=== PATIENT | male | born 1980 | race Caucasian/White ===

== ENCOUNTER 2017-01-07 16:15 | Day surgery (SDC) | payer OTHER ==
[~2017-01-07] VITALS: Ht 167.6 cm; Wt 88.5 kg
[2017-01-07] MEDS ORDERED: NS IV 1000 ML 1,000 ML IV SCH (18:00)
--- NOTE | 2017-01-07 18:00 | ED Abdominal Pain ---
General Chief Complaint: Abdominal/GI Problems Stated Complaint: GALLBLADDER Nursing Triage Note: Patient was evaluated by Dr. Brunson ([place]) patient had an ultrasound of gallbladder and was told to present to [facility] Sepsis Screen: No Definite Risk Source of Information: Patient Exam Limitations: No Limitations (THEODORE BROCK MD) History of Present Illness Time Seen By Provider: 17:55 Initial Comments The patient is a 36-year-old white male who presents from [facility]. He reports that on last Wednesday he became ill with abdominal pain and vomiting. He saw his doctor in [place] and this morning had an ultrasound done. He was then summoned to the doctor's office and was allegedly told that he should get to [facility] that they would help him there. No blood work was done. The patient brought the disc with him. He reports that he is otherwise in apparent good health. Timing/Duration: 4-5 Days Severity/Quality: Moderate Location: Generalized Abdomen Radiation: Flank (right) (THEODORE BROCK MD) Initial Comments 1750--PT SEEN AND EVALUATED BY ME PT HAS HAD NAUSEA AND VOMITING AND RUQ AND UPPER ABDOMINAL PAIN RADIATING AROUND TO RIGHT FLANK SINCE Wednesday01/02/17 NO VOMITING TODAY, BUT IS STILL VERY NAUSEATED NO DIARRHEA NO FEVER C/O FEELING LIGHTHEADED TODAY MINIMAL INTAKE, DUE TO SYMPTOMS. DID EAT TOAST EARLY THIS AM PT LIVES IN [place], [place] AND WAS SEEN TODAY BY DR IN [place], [place] HAD OUTPATIENT ULTRASOUND AT THAT HOSPITAL, THEN WENT BACK TO DR'S OFFICE AND STATES THAT DRJose TOLD HIM "HE DIDN'T LIKE THE RESULTS" BUT HAD NOT BEEN READ BY RADIOLOGIST YET PT STATES THE DR TOLD HIM "IF HE DID LAB HE MIGHT HAVE TO PUT ME IN THE HOSPITAL AND HE COULD POSSIBLY MAKE IT WORSE" --SO PT STATES HE WAS TOLD BY THE TO COME HERE TO THIS ER --BRINGS A CD DISC OF HIS ULTRASOUND (GUNNER GRANT DO) Allergies and Home Medications Allergies Coded Allergies: No Known Drug Allergies (Unverified , 01/07/17) Home Medications Hydrocodone/Acetaminophen 1 Each Tablet, 1-2 TAB PO Q6H, #30 Ref 0 Prescribed by: ALTHEA HENDERSON on 01/07/17 9740 Review of Systems Constitutional: see HPI EENTM: No Symptoms Reported Respiratory: No Symptoms Reported Gastrointestinal: See HPI, Abdominal Pain, Nausea, Poor Appetite, Vomiting Genitourinary: No Symptoms Reported Musculoskeletal: no symptoms reported Skin: no symptoms reported Psychiatric/Neurological: No Symptoms Reported Endocrine: No Symptoms Reported Hematologic/Lymphatic: No Symptoms Reported (THEODORE BRCOK MD) Constitutional: no symptoms reported Respiratory: No Symptoms Reported Cardiovascular: No Symptoms Reported Gastrointestinal: See HPI, Abdominal Pain (EPIGASTRIC AND RUQ), Denies Constipated, Denies Diarrhea, Nausea, Poor Appetite, Poor Fluid Intake, Vomiting Genitourinary: No Symptoms Reported Musculoskeletal: see HPI, back pain (RIGHT FLANK) (YAJAIRA GRANTA Jaciel DO) Past Gsfjjzf-Nbwloa-Qqpuvy Hx Patient Social History Alcohol Use: Denies Use Recreational Drug Use: No Type Used: Cigarettes 2nd Hand Smoke Exposure: No Recent Foreign Travel: No Contact w/Someone Who Travel: No Recent Infectious Disease Expo: No Recent Hopitalizations: No (THEODORE BROCK MD) Alcohol Use: Occasionally Uses (HISTORY OF VERY HEAVY, REGULAR USE, NOW DRINKS ABOUT ONCE A MONTH) Recreational Drug Use: Yes (THC) Smoking Status: Current Someday Smoker Type Used: Cigars, Smokeless Tobacco (YAJAIRA GRANTA K DO) Surgeries HX Surgeries: No (THEODORE BROCK MD) HX Surgeries: No (GUNNER GRANT DO) Respiratory Hx Respiratory Disorders: No (THEODORE BROCK MD) Hx Respiratory Disorders: No (GUNNER GRANT DO) Cardiovascular Hx Cardiac Disorders: Yes Cardiac Disorders: Hypertension (THEODORE BROCK MD) Hx Cardiac Disorders: No (YAJAIRA GRANTA Jaciel MCCABE) Neurological Hx Neurological Disorders: No (THEODORE BROCK MD) Hx Neurological Disorders: No (YAJAIRA GRANTA Jaciel MCCABE) Reproductive System Hx Reproductive Disorders: No Sexually Transmitted Disease: No (THEODORE BROCK MD) Hx Reproductive Disorders: No (GUNNER GRANT DO) Genitourinary Hx Genitourinary Disorders: No (THEODORE BROCK MD) Hx Genitourinary Disorders: No (GUNNER GRANT DO) Gastrointestinal Hx Gastrointestinal Disorders: No (THEODORE BROCK MD) Hx Gastrointestinal Disorders: No (YAJAIRA GRANTA Jaciel DO) Musculoskeletal Hx Musculoskeletal Disorders: No (THEODORE BROCK MD) Hx Musculoskeletal Disorders: No (JUANITA,GUNNER K DO) Endocrine Hx Endocrine Disorders: No (THEODORE BROCK MD) Hx Endocrine Disorders: No (YAJAIRA GRANTA K DO) HEENT HX ENT Disorders: No (THEODORE BROCK MD) HX ENT Disorders: No (YAJAIRA GRANTA Jaciel DO) Cancer Hx Cancer: No (THEODORE BROCK MD) Hx Cancer: No (YAJAIRA GRANTA Jaciel MCCABE) Psychosocial Hx Psychiatric Problems: No (THEODORE BROCK MD) Hx Psychiatric Problems: No (YAJAIRA GRANTA K DO) Integumentary HX Skin/Integumentary Disorder: No (THEODORE BROCK MD) HX Skin/Integumentary Disorder: No (YAJAIRA GRANTA Jaciel MCCABE) Blood Transfusions Hx Blood Disorders: No (THEODORE BROCK MD) Hx Blood Disorders: No (JUANITA,GUNNER K DO) Physical Exam Vital Signs VS - Last 72 Hours, by Label 01/07/17 01/07/17 16:42 17:56 Temp 99.5 100.6 Pulse 88 98 Resp 18 18 B/P (MAP) 130/103 Pulse Ox 97 100 (JUANITA,GUNNER K DO) Vital Signs Capillary Refill : Less Than 3 Seconds (THEODORE BROCK MD) General Appearance: moderate distress HEENT: PERRL/EOMI, normal ENT inspection, TMs normal, pharynx normal Neck: non-tender, full range of motion, supple, normal inspection Respiratory: chest non-tender, lungs clear, normal breath sounds, no respiratory distress, no accessory muscle use Cardiovascular: normal peripheral pulses, regular rate, rhythm, no edema, no gallop, no JVD, no murmur Gastrointestinal: other Pelvic: discharge Skin: normal color, warm/dry Lymphatic: no adenopathy (THEODORE BRCOK MD) General Appearance: WD/WN, no apparent distress, other (LOOKS SLIGHTLY UNCOMFORTABLE. 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, no motor/sensory deficits, alert, normal mood/affect, oriented x 3 Skin: normal color, warm/dry, No jaundice (JUANITA,GUNNER K DO) Progress/Results/Core Measures Results/Orders Lab Results Laboratory Tests Test 01/07/17 18:15 01/07/17 18:18 Range/Units Urine Color YELLOW Urine Clarity SLIGHTLY CLOUDY Urine pH 6 5-9 Urine Specific [place] 1.020 1.016-1.022 Urine Protein 1+ H NEGATIVE Urine Glucose (UA) NEGATIVE NEGATIVE Urine Ketones 1+ H NEGATIVE Urine Nitrite NEGATIVE NEGATIVE Urine Bilirubin NEGATIVE NEGATIVE Urine Urobilinogen NORMAL NORMAL MG/DL Urine Leukocyte Esterase 1+ H NEGATIVE Urine RBC (Auto) NEGATIVE NEGATIVE Urine RBC NONE /HPF Urine WBC 0-2 /HPF Urine Crystals NONE /LPF Urine Bacteria NEGATIVE /HPF Urine Casts NONE /LPF Urine Mucus LARGE H /LPF Urine Culture Indicated NO Urine Opiates Screen NEGATIVE NEGATIVE Urine Oxycodone Screen NEGATIVE NEGATIVE Urine Methadone Screen NEGATIVE NEGATIVE Urine Propoxyphene Screen NEGATIVE NEGATIVE Urine Barbiturates Screen NEGATIVE NEGATIVE Ur Tricyclic Antidepressants Screen NEGATIVE NEGATIVE Urine Phencyclidine Screen NEGATIVE NEGATIVE Urine Amphetamines Screen NEGATIVE NEGATIVE Urine Methamphetamines Screen NEGATIVE NEGATIVE Urine Benzodiazepines Screen NEGATIVE NEGATIVE Urine Cocaine Screen NEGATIVE NEGATIVE Urine Cannabinoids Screen POSITIVE H NEGATIVE White Blood Count 11.1 H 4.3-11.0 10^3/uL Red Blood Count 5.16 4.35-5.85 10^6/uL Hemoglobin 15.6 13.3-17.7 G/DL Hematocrit 45 40-54 % Mean Corpuscular Volume 88 80-99 FL Mean Corpuscular Hemoglobin 30 25-34 PG Mean Corpuscular Hemoglobin Concent 35 32-36 G/DL Red Cell Distribution Width 12.4 10.0-14.5 % Platelet Count 271 130-400 10^3/uL Mean Platelet Volume 9.7 7.4-10.4 FL Neutrophils (%) (Auto) 58 42-75 % Lymphocytes (%) (Auto) 32 12-44 % Monocytes (%) (Auto) 9 0-12 % Eosinophils (%) (Auto) 1 0-10 % Basophils (%) (Auto) 1 0-10 % Neutrophils # (Auto) 6.4 1.8-7.8 X 10^3 Lymphocytes # (Auto) 3.5 1.0-4.0 X 10^3 Monocytes # (Auto) 1.0 0.0-1.0 X 10^3 Eosinophils # (Auto) 0.1 0.0-0.3 10^3/uL Basophils # (Auto) 0.1 0.0-0.1 10^3/uL Sodium Level 140 135-145 MMOL/L Potassium Level 4.0 3.6-5.0 MMOL/L Chloride Level 103 98-107 MMOL/L Carbon Dioxide Level 26 21-32 MMOL/L Anion Gap 11 5-14 MMOL/L Blood Urea Nitrogen 11 7-18 MG/DL Creatinine 0.82 0.60-1.30 MG/DL Estimat Glomerular Filtration Rate > 60 BUN/Creatinine Ratio 13 Glucose Level 88 70-105 MG/DL Calcium Level 9.4 8.5-10.1 MG/DL Total Bilirubin 0.9 0.1-1.0 MG/DL Aspartate Amino Transf (AST/SGOT) 15 5-34 U/L Alanine Aminotransferase (ALT/SGPT) 18 0-55 U/L Alkaline Phosphatase 66 40-136 U/L Total Protein 7.1 6.4-8.2 G/DL Albumin 4.4 3.2-4.5 G/DL Amylase Level 64 25-125 U/L Lipase 5 L 8-78 U/L (JUANITAGUNNER Jaciel DO) My Orders Orders - JUANITAGUNNER K DO Saline Lock/Iv-Start (01/07/17 18:05) Amylase (01/07/17 18:05) Drug Screen Stat (Urine) (01/07/17 18:05) Ondansetron Injection (Zofran Injectio (01/07/17 18:15) Ketorolac Injection (Toradol Injection) (01/07/17 18:05) Ct Abdomen/Pelvis W (01/07/17 18:33) Acute Abd Series (01/07/17 18:33) Iohexol Injection (Omnipaque 350 Mg/Ml 1 (01/07/17 18:45) Ns (Ivpb) (Sodium Chloride 0.9% Ivpb Bag (01/07/17 18:45) (GUNNER GRANT DO) Medications Given in ED Current Medications Medications Dose Ordered Sig/Catracho Route Start Time Stop Time Status Last Admin Dose Admin Iohexol 100 ml ONCE ONCE IV 01/07/17 18:45 01/07/17 18:46 DC 01/07/17 18:57 100 ML Ondansetron HCl 8 mg ONCE ONCE IVP 01/07/17 18:15 01/07/17 18:16 DC 01/07/17 18:29 8 MG Sodium Chloride 100 ml ONCE ONCE IV 01/07/17 18:45 01/07/17 18:46 DC 01/07/17 18:57 80 ML (GUNNER GRANT DO) Vital Signs/I&O Vital Sign - Last 12Hours 01/07/17 01/07/17 16:42 17:56 Temp 99.5 100.6 Pulse 88 98 Resp 18 18 B/P (MAP) 130/103 Pulse Ox 97 100 Intake and Output 01/08/17 00:00 Intake Total 1000 ml Balance 1000 ml (GUNNER GRANT DO) Blood Pressure Mean: [address] ABDOMEN/PELVIS--FATTY LIVER, GB GROSSLY NORMAL, NO ACUTE PROCESS PER RADIOLOGIST REPORT @ 191 ON REVIEW OF GB ULTRASOUND DONE AT [place], THERE IS NOTED TO BE A LARGE GALLSTONE PRESENT Reviewed: Reviewed by Me (GUNNER GRANT DO) Departure Communication Progress Notes 1917--SPOKE WITH DR. HENDERSON --WILL BE DOWN TO SEE PT 1943--DR. HENDERSON HERE TO SEE PT. CARE TURNED OVER TO HIM. DR. HENDERSON WILL BE TAKING PT TO SURGERY TONIGHT (GUNNER GRANT DO) Impression Impression: Primary Impression: Cholelithiasis Disposition: ADMITTED INPATIENT (TO SURGERY) Condition: Improved Decision to Admit Reason: Admit from ER (General) (TO OR) Decision to Admit/Date: Jan 07, 2017 Time/Decision to Admit Time: 20:00 (GUNNER GRANT DO) Departure-Patient Inst. Referrals: NO,LOCAL PHYSICIAN (PCP) Primary Care Physician Scripts Hydrocodone/Acetaminophen (Hydrocodon-Acetaminophn 10-325) 1 Each Tablet 1-2 TAB PO Q6H for PAIN, #30 TAB 0 Refills Prov: ALTHEA HENDERSON DO 01/07/17 THEODORE BROCK MD Jan 07, 2017 18:00 GUNNER GRANT DO Jan 08, 2017 04:34
[2017-01-07] MEDS ORDERED: KETOROLAC 30 MG/ML VIAL IVP STA (18:05)
[2017-01-07] MEDS ORDERED: ONDANSETRON 4 MG/2 ML (SDV) Z0FRAN IVP ONE (18:15)
[2017-01-07 18:23] LABS: BASOPHILS # (AUTO) 0.1 10^3/uL (0.0-0.1); BASOPHILS % (AUTO) 1 % (0-10); EOSINOPHILS # (AUTO) 0.1 10^3/uL (0.0-0.3); EOSINOPHILS % (AUTO) 1 % (0-10); LYMPHOCYTES # (AUTO) 3.5 X 10^3 (1.0-4.0); LYMPHOCYTES % (AUTO) 32 % (12-44); MEAN CORPUSCULAR HEMOGLOBIN 30 PG (25-34); MEAN CORPUSCULAR HGB CONC 35 G/DL (32-36); MEAN CORPUSCULAR VOLUME 88 FL (80-99); MEAN PLATELET VOLUME 9.7 FL (7.4-10.4); MONOCYTES % (AUTO) 9 % (0-12); NEUTROPHILS # (AUTO) 6.4 X 10^3 (1.8-7.8); NEUTROPHILS % (AUTO) 58 % (42-75); PLATELET COUNT 271 10^3/uL (130-400); RED BLOOD COUNT 5.16 10^6/uL (4.35-5.85); RED CELL DISTRIBUTION WIDTH 12.4 % (10.0-14.5); WHITE BLOOD COUNT 11.1 10^3/uL (4.3-11.0)
[2017-01-07 18:41] LABS: ALANINE AMINOTRANSFERASE 18 U/L (0-55); ALBUMIN 4.4 G/DL (3.2-4.5); AMYLASE 64 U/L (25-125); ANION GAP 11 MMOL/L (5-14); ASPARTATE AMINO TRANSFERASE 15 U/L (5-34); BILIRUBIN,TOTAL 0.9 MG/DL (0.1-1.0); BLOOD UREA NITROGEN 11 MG/DL (7-18); BUN/CREATININE RATIO 13; CALCIUM 9.4 MG/DL (8.5-10.1); CARBON DIOXIDE 26 MMOL/L (21-32); CHLORIDE 103 MMOL/L (98-107); CREATININE SERUM 0.82 MG/DL (0.60-1.30); GFR ESTIMATED > 60; GLUCOSE 88 MG/DL (70-105); LIPASE 5 U/L (8-78); SODIUM 140 MMOL/L (135-145); TOTAL PROTEIN 7.1 G/DL (6.4-8.2)
[2017-01-07 18:43] LABS: BILIRUBIN,URINE NEGATIVE (NEGATIVE); KETONES,URINE 1+ (NEGATIVE); LEUKOCYTE ESTERASE ,URINE 1+ (NEGATIVE); NITRITE,URINE NEGATIVE (NEGATIVE); PH,URINE 6 (5-9); PROTEIN,URINE 1+ (NEGATIVE); UROBILINOGEN,URINE NORMAL (NORMAL)
[2017-01-07] MEDS ORDERED: IOHEXOL 350 MG/ML 100 ML (OMNIPAQUE 350) VIAL IV ONE (18:45)
[2017-01-07] MEDS ORDERED: NS 100 ML (IVPB) BAG IV ONE (18:45)
[2017-01-07 19:01] LABS: WBC,URINE 0-2 /HPF
--- NOTE | 2017-01-07 19:10 | Diagnostic Imaging Report ---
INDICATION: Right upper quadrant pain, vomiting and lightheadedness. EXAMINATION: CT of the abdomen and pelvis with IV contrast bolus. COMPARISON: There is no prior study for comparison. FINDINGS: The visualized portions of the lung bases are clear. There are no pleural fluid collections. There is no free intraperitoneal air. The liver shows diffuse low-density changes compatible with fatty infiltration. There is a small flash filling hemangioma in the left lobe of the liver, anteriorly, measuring about 1 cm. Gallbladder is not distended and showed no overt stones or wall thickening. There is a tiny cyst in the liver near the gallbladder fossa. The spleen, adrenals and pancreas are normal. The kidneys, bilaterally, are unremarkable. There is no retroperitoneal mass or adenopathy. There is no ascites or abnormal fluid collection. Visualized bowel loops show no sign of bowel obstruction or focal bowel wall thickening. The appendix is not visualized with certainty but there is no inflammatory reaction in its expected location. IMPRESSION: Mild fatty infiltration of the liver. Small probable flash filling hemangioma in the left lobe of the liver. Tiny cyst in the liver near the gallbladder fossa. Gallbladder, itself, is not distended and shows no overt stones or wall thickening. Dictated by: Dictated on workstation # [id number]
--- NOTE | 2017-01-07 19:21 | Diagnostic Imaging Report ---
INDICATION: Right upper quadrant pain and vomiting and lightheadedness Abdominal series performed with a frontal chest radiograph and supine and upright abdominal films Heart and mediastinal silhouette are normal in appearance. The lungs are clear. There is no pneumothorax or pleural fluid. There is no free intraperitoneal air. The abdominal bowel gas pattern is nonspecific. Shere is no sign of obstruction or ileus. There is residual contrast in the kidneys and bladder. IMPRESSION: Unremarkable abdominal series. Dictated by: Dictated on workstation # [id number]
--- NOTE | 2017-01-07 20:07 | History & Physical-Surgical ---
History of Present Illness History of Present Illness Reason for visit/HPI Pt is a 36 yo male who was sent here from [place], told he had "bad gallbladder". Pt states he has been in pain since Wednesday. He states he has not been able to eat solid food since Wednesday and yesterday hard to keep down fluids. Pain was rated as 10 out of 10, on a 1-10 scale. Starting in RUQ and going around to back, just under the shoulder blade. + nausea and vomiting, with "fevers and chills at home", but states he didn't take temperature. He thinks he has had pain in right side before, but more in the mid-chest area; although he has been to ER and admitted for severe pain under right shoulder blade "but they never found anything wrong". He is not sure if any types of foods make pain better or worse. Right now nothing makes pain better. Date of Admission I consulted on this patient on 01/07/17 20:02 Attending Physician Raz Masters DO Admitting Physician No,Local Physician Consult Allergies and Home Medications Allergies Coded Allergies: No Known Drug Allergies (Unverified , 01/07/17) Home Medications No Active Prescriptions or Reported Meds Past Olnnvkl-Hasehg-Cvllzp Hx Patient Social History Alcohol Use: Denies Use Recreational Drug Use: No Smoking Status: Current Someday Smoker Type Used: Cigarettes 2nd Hand Smoke Exposure: No Recent Foreign Travel: No Contact w/Someone Who Travel: No Recent Infectious Disease Expo: No Recent Hopitalizations: No Surgeries HX Surgeries: No Respiratory Hx Respiratory Disorders: No Cardiovascular Hx Cardiac Disorders: Yes Cardiac Disorders: Hypertension Neurological Hx Neurological Disorders: No Reproductive System Hx Reproductive Disorders: No Sexually Transmitted Disease: No Genitourinary Hx Genitourinary Disorders: No Gastrointestinal Hx Gastrointestinal Disorders: No Musculoskeletal Hx Musculoskeletal Disorders: No Endocrine Hx Endocrine Disorders: No HEENT HX ENT Disorders: No Cancer Hx Cancer: No Psychosocial Hx Psychiatric Problems: Yes Behavioral Health Disorders: Anxiety, Depression Integumentary HX Skin/Integumentary Disorder: No Blood Transfusions Hx Blood Disorders: No Family Medical History Significant Family History: CAD Under 55 Years Old (all of his brothers have had stents placed), Diabetes, Hypertension Constitutional: chills, malaise, weakness, weight loss EENTM: No blurred vision, No hearing loss, No mouth swelling, No throat swelling Respiratory: No cough, No dyspnea on exertion, No hemoptysis Cardiovascular: No chest pain, No edema Gastrointestinal: RUQ, see HPI, No diarrhea, No hematemesis, No jaundice Genitourinary: No discharge, No dysuria, No frequency Musculoskeletal: No back pain, No joint pain, No muscle stiffness Skin: No change in color, No change in hair/nails, No hx of skin cancer Psychiatric/Neurological: Anxiety, Depressed, Denies Seizure, Denies Tingling, Denies Tremors Other pt denies any heat or cold intolerance, no chronic illnesses and no unexplained bruising or bleeding Physical Exam Vital Signs Vital Sign - Last 12Hours 01/07/17 16:42 Temp 99.5 Pulse 88 Resp 18 B/P (MAP) 130/103 Pulse Ox 97 Capillary Refill : Less Than 3 Seconds General Appearance: WD/WN, Anxious, Severe Distress Eyes: Bilateral Eye EOMI, Bilateral Eye PERRL HEENT: Pharynx Normal, No Pale Conjunctivae (L), No Pale Conjunctivae (R), No Scleral Icterus (L), No Scleral Icterus (R) Neck: Full Range of Motion, Non Tender, Supple Respiratory: Chest Non Tender, Lungs Clear, Normal Breath Sounds, No Accessory Muscle Use, No Respiratory Distress Cardiovascular: Regular Rate, Rhythm, No Edema, No Murmur, Normal Peripheral Pulses Gastrointestinal: No Organomegaly, No Pulsatile Mass, Guarding, Hernia ( umbilical), Tenderness (right) Rectal: Deferred Back: No CVA Tenderness, No Vertebral Tenderness Extremity: Normal Capillary Refill, Normal Inspection, Normal Range of Motion, Non Tender, No Calf Tenderness Neurologic/Psychiatric: Alert, Oriented x3, No Motor/Sensory Deficits, 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 Norm as Tested, Other (very anxious and upset, thought he was getting sent home) Skin: Normal Color, Warm/Dry Lymphatic: No Adenopathy (neck, axilla or groin) Data Review Labs Laboratory Tests 01/07/17 18:15: Urine Color YELLOW, Urine Clarity SLIGHTLY CLOUDY, Urine pH 6, Urine Specific [place] 1.020, Urine Protein 1+H, Urine Glucose (UA) NEGATIVE, Urine Ketones 1+H , Urine Nitrite NEGATIVE, Urine Bilirubin NEGATIVE, Urine Urobilinogen NORMAL, Urine Leukocyte Esterase 1+H, Urine RBC (Auto) NEGATIVE, Urine RBC NONE, Urine WBC 0-2, Urine Crystals NONE, Urine Bacteria NEGATIVE, Urine Casts NONE, Urine Mucus LARGEH, Urine Culture Indicated NO, Urine Opiates Screen NEGATIVE, Urine Oxycodone Screen NEGATIVE, Urine Methadone Screen NEGATIVE, Urine Propoxyphene Screen NEGATIVE, Urine Barbiturates Screen NEGATIVE, Ur Tricyclic Antidepressants Screen NEGATIVE, Urine Phencyclidine Screen NEGATIVE, Urine Amphetamines Screen NEGATIVE, Urine Methamphetamines Screen NEGATIVE, Urine Benzodiazepines Screen NEGATIVE, Urine Cocaine Screen NEGATIVE, Urine Cannabinoids Screen POSITIVEH 01/07/17 18:18: White Blood Count 11.1H, Red Blood Count 5.16, Hemoglobin 15.6, Hematocrit 45, Mean Corpuscular Volume 88, Mean Corpuscular Hemoglobin 30, Mean Corpuscular Hemoglobin Concent 35, Red Cell Distribution Width 12.4, Platelet Count 271, Mean Platelet Volume 9.7, Neutrophils (%) (Auto) 58, Lymphocytes (%) (Auto) 32, Monocytes (%) (Auto) 9, Eosinophils (%) (Auto) 1, Basophils (%) (Auto) 1, Neutrophils # (Auto) 6.4, Lymphocytes # (Auto) 3.5, Monocytes # (Auto) 1.0, Eosinophils # (Auto) 0.1, Basophils # (Auto) 0.1, Sodium Level 140, Potassium Level 4.0, Chloride Level 103, Carbon Dioxide Level 26, Anion Gap 11, Blood Urea Nitrogen 11, Creatinine 0.82, Estimat Glomerular Filtration Rate > 60, BUN/ Creatinine Ratio 13, Glucose Level 88, Calcium Level 9.4, Total Bilirubin 0.9, Aspartate Amino Transf (AST/SGOT) 15, Alanine Aminotransferase (ALT/SGPT) 18, Alkaline Phosphatase 66, Total Protein 7.1, Albumin 4.4, Amylase Level 64, Lipase 5L Assessment/Plan Assessment/Plan Assessment/Plan Acute Cholecystitis with Cholelithiasis HTN Mildly elevated WBC US shows at least one stone, with CBD 5.8 mm which is enlarged for his age. Plan to OR for Lap robel with IOC. Discussed risk and complications with pt, including but not limited to; pain, bleeding, infection, scar, damage to bowel or bile duct and need for further procedure. I also told pt there is a 5-10% chance that all of his pain may not go away. He may need EGD in the future. IVF, IV ABX , and consent ordered. All questions answered to his satisfaction. RAZ MASTERS DO Jan 07, 2017 20:07
[2017-01-07] MEDS ORDERED: DEXAMETHASONE PF 10 MG/ML (DECADRON) VIAL ONE (20:16)
[2017-01-07] MEDS ORDERED: proPOfol 200 MG/20 ML (DIPRIVAN) VIAL IV ONE (20:16)
[2017-01-07] MEDS ORDERED: LIDOCAINE PF 2% 10 ML (XYLOCAINE) AMP ONE (20:16)
[2017-01-07] MEDS ORDERED: MIDAZOLAM 2 MG/2 ML (VERSED) VIAL ONE (20:16)
[2017-01-07] MEDS ORDERED: fentaNYL INJECTION 100 MCG/2 ML AMP ONE ×2 (20:16→21:23)
[2017-01-07] MEDS ORDERED: ROCURONIUM 50 MG/5 ML (ZEMURON) VIAL IV ONE (20:16)
[2017-01-07] MEDS ORDERED: ONDANSETRON 4 MG/2 ML (SDV) Z0FRAN ONE ×2 (20:16→21:23)
[2017-01-07] MEDS ORDERED: LACTATED RINGERS 1,000 ML IV ONE ×2 (20:16→21:08)
[2017-01-07] MEDS ORDERED: LIDOCAINE/EPI 1%-1:100,000 (XYLOCAINE) 20ML ONE (20:29)
[2017-01-07] MEDS ORDERED: ceFAZolin 2 GM/50 ML NS 50 ML IV ONE (20:30)
[2017-01-07] MEDS: LACTATED RINGERS 1,000 ML IV PRN ×2 (20:44→21:15)
[2017-01-07] MEDS ORDERED: NEOSTIGMINE (BLOXIVERZ ) 1 MG/1ML 10 ML VIAL ONE (21:46)
[2017-01-07] MEDS ORDERED: GLYCOPYRROLATE 0.2 MG/ML (ROBINUL) 2 ML VIAL ONE (21:46)
[2017-01-07] MEDS ORDERED: ONDANSETRON 4 MG/2 ML (SDV) Z0FRAN IVP PRN (22:15)
[2017-01-07] MEDS: fentaNYL INJECTION 100 MCG/2 ML AMP IVP PRN ×2 (22:24→22:35)
[2017-01-07] MEDS ORDERED: HYDR-3820 PO (22:27)
[2017-01-07] MEDS ORDERED: LACTATED RINGERS 1,000 ML IV SCH (22:30)
[2017-01-07] MEDS ORDERED: morphine INJ 4 MG/ML 1 ML (VIAL/SYRINGE) IVP PRN (22:30)
[2017-01-07] MEDS ORDERED: HYDROcodone/APAP 5 MG/325 MG (LORTAB) TAB PO ONE (22:30)
--- NOTE | 2017-01-07 22:30 | Discharge Inst-Surgical ---
Discharge Inst-Surgical Depart Medication/Instructions New, Converted or Re-Newed RX: RX Given to Pt/Family Patient Instructions Follow up Appt: Make appointment for 1 weeks. [phone] Instructions: No lifting greater than 20 pounds, for 3-4 weeks No strenuous activity. May shower in 24 hours, no tub bath or soaking. Use incentive spirometer at home as directed. No Smoking Skin/Wound Care: May remove band-aids in evening 01/08 Symptoms to Report: Appetite Changes, Extremity Discoloration, Numbness/Tingling, Swelling Increased , Bleeding Excessive, Eyesight Changes, Pain Increased, Urine Color Change, Constipation(Persistent), Fever over 101 degree F, Pain/Pressure in chest, Urinating Difficulty, Cough Up/Vomit Blood, Heart Beat Irreg/Pounding, Pain/ Pressure in jaw, Vaginal Bleeding Increase, Cramps in feet or legs, Lightheadedness, Pain/Pressure in shoulder, Diarrhea(Persistent), Memory Changes Suddenly, Questions/Concerns, Weight gain consecutive days, Dizziness/ Fainting, Nausea/Vomiting, Shortness of Breath, Weight gain over 2 pounds. If eyes or skin turn yellow notify physician. If questions or concerns contact your physician Or seek help at emergency department. Activity Activity as Tolerated: No Driving Instructions: No Driving/Refer to Diet Discharge Diet: Avoid Fatty Foods If Any Problems/Questions/Issu: Contact Your Physician, Go to Emergency Room Skin/Wound Care Infection Signs and Symptoms: Increased Redness, Foul Odor of Wound, Increased Drainage, Skin Itchy or Has a Rash, Increased Swelling, Temperature Above 101 F Bathing Instructions: Shower Stitches/Shemar/Dermabond Dis: Dermabond Ice Pack: Ice On and Off Site ALTHEA HENDERSON DO Jan 07, 2017 22:30
--- NOTE | 2017-01-07 22:34 | Progress Note-Post Operative ---
Post-Operative Progess Note Surgeon (s)/Barrel Turner (s) Surgeon ALTHEA HENDERSON DO Barrel Turner: Juli Pre-Operative Diagnosis acute robel/robel Post-Operative Diagnosis acute robel/robel Large LIH small RIH Post-Op Procedure Note Date of Procedure: Jan 07, 2017 Name of Procedure Performed: Lap Robel with IOC Description of the Procedure: gallbladder removal Findings of the Procedure mildly injected GB, adhesions to GB Anesthesia Type GET Estimated blood loss (mL): scant Specimen(s) collected/removed GB and contents ALTHEA HENDERSON DO Jan 07, 2017 22:34
[2017-01-07 23:15] VITALS: BP 144/90
[2017-01-08 04:45] VITALS: BP 110/67
--- NOTE | 2017-01-08 06:01 | Diagnostic Imaging Report ---
EXAMINATION: Fluoroscopy INDICATION: Laparoscopic cholecystectomy, abdominal pain Fluoroscopic assistance was provided for Dr. Masters during his laparoscopic cholecystectomy procedure. 19.1 seconds of fluoroscopy time was utilized. There are laparoscopic devices in place. There has been opacification of the common bile duct via a cystic duct catheter. There is a minute defect within the midportion of the duct. There is also a smaller defect in the distal portion of the duct near the entry of the duct into the head of the pancreas. These findings are questionable for calculi. IMPRESSION: Fluoroscopic assistance was provided for Dr. Masters during his laparoscopic cholecystectomy procedure. Dictated by: Dictated on workstation # [id number]
--- NOTE | 2017-01-08 06:13 | OPERATIVE REPORT ---
DATE OF SERVICE: 01/07/2017 PREOPERATIVE DIAGNOSIS: Acute cholecystitis, cholelithiasis. POSTOPERATIVE DIAGNOSIS: 1. Acute cholecystitis, cholelithiasis. 2. Large left inguinal hernia. 3. Small right inguinal hernia. 4. Umbilical hernia. PROCEDURE: Laparoscopic cholecystectomy with intraoperative cholangiogram. SURGEON: Dr. Masters. TRIMMING MACHINE OPERATOR: Dr. Bustos. ANESTHESIA: General endotracheal tube. SPECIMEN: Gallbladder and contents. BLOOD LOSS: Scant. FLUIDS: Per anesthesia. POSTOP CONDITION: Stable. INDICATION FOR PROCEDURE: The patient is a 36-year-old male with complaints of 10/10 pain. Ultrasound showed gallstone and a very, very mildly elevated white count at 11.1. FINDINGS: The patient had gallbladder mildly injected, a little bit erythematous, and it had some adhesions down to the base. These signs are usually indicative of cholecystitis attacks. Also of note, he had a small right inguinal hernia and a large left inguinal hernia. Pictures of this were taken. He also had an umbilical hernia. PROCEDURE NOTE: After informed consent was obtained, the patient was brought to the operating room and placed on the table in supine position. He was sterilely prepped and draped in normal fashion. Local lidocaine was used to infiltrate the skin above the umbilicus. Then made an incision with a #11 blade, carried down through the skin into the subcutaneous tissue, then debrided down to the subcutaneous tissue with Bovie cautery down to the fascia. Fascia incised with Bovie electrocautery and then bluntly entered the abdomen, swept a finger around. Placed the oblique 0 [id number] suture, then placed an 11 mm trocar port under direct visualization. Created a pneumoperitoneum and then placed 3 more ports in a normal fashion using local lidocaine, 11 blade for stab incision and the VersaStep system, all done under direct visualization, one subxiphoid and 2 in the right upper quadrant. The patient was then placed slightly reverse Trendelenburg, rotated to the left. Able to visualize the gallbladder. It was a little bit erythematous. Took a picture of this and then took a picture of the right and left inguinal hernias. Also, I took a picture of the base of the gallbladder, the adhesions, some fat and the small intestine. This is usually indicative of previous gallbladder attacks. Able to grasp gallbladder at the Meli's pouch and pulling in from a lateral direction and start dissecting out cystic duct and cystic artery. Able to get around the cystic duct and cystic artery. Placed 1 clip distally and 2 proximally in the cystic artery, and then 1 clip distally on the cystic duct. Cut the cystic duct senior living through with Metzenbaum scissors. Placed a cholangiogram catheter, had to hold this in place with a clip and then shot a cholangiogram. Good spillage of dye down the common bile duct and into the small intestine as well as up in the common hepatic and right and left hepatics. Removed the clip and removed the cholangiogram catheter and then placed 2 clips proximally on the cystic duct and cut the cystic duct and cystic artery with Metzenbaum scissors. Then removed the gallbladder from the bed of the liver with the L hook cautery and once it was completely removed, placed a bag in, placed the gallbladder in the bag, and removed this through the supraumbilical incision. Placed the port back in the abdomen, copiously irrigated with normal saline, suctioned this out, looked around, did not see any other obvious pathology. The patient was placed supine, removed all ports from direct visualization and allowed the pneumoperitoneum to escape as well as suctioned out. Then closed the supraumbilical incision, closing the fascia with an 0 Vicryl suture previously placed. Copiously irrigated all incisions with normal saline, closing the 3 small 5 mm incisions with a single interrupted 4-0 undyed Monocryl subcuticular stitch. Closed the supraumbilical incision with 3 interrupted 4-0 undyed Monocryl subcuticular stitches. The area was cleaned and dried, Dermabond placed, and patient then transferred to recovery room in stable condition. Sponge, instrument, and needle counts correct at the end of the case. Dr. Bustos assisted in identifying anatomy. He made some incisions and inserted ports as well as with the traction. Job ID: [id number] DocumentID: [id number] Dictated Date: 01/07/2017 22:37:32 Or Manager Date: 01/07/2017 23:21:34 Dictated By: DO CAROLYNN TOPETE
[2017-01-08 08:10] VITALS: BP 110/67
== END 2017-01-08 08:10 | disposition home or self-care (01) ==
LOC: ER 16:21 → SDC 19:56 → 4TH 23:22 → ENPENDDIS 01-08 08:00 → SDC 01-08 08:10
PROVIDERS: ATTEND Surgery
DX: K80.00 Calculus of gallbladder with acute cholecystitis without obstruction (principal); K40.20 Bilateral inguinal hernia, without obstruction or gangrene, not specified as recurrent; K42.0 Umbilical hernia with obstruction, without gangrene; I10 Essential (primary) hypertension; F17.210 Nicotine dependence, cigarettes, uncomplicated
CPT/HCPCS: 36415; 74022; 74177; 80053; 80306; 81000; 82150; 83690; 85025; 88304; 94664; 96361; 96374; 96375